=== PATIENT | female | born 1990 | race American Indian/Alaskan Native ===

== ENCOUNTER 2017-09-08 21:08 | Outpatient (CLI) | payer MEDICAID ==
[2017-09-08 21:26] VITALS: BP 134/64
[2017-09-08] MEDS ORDERED: LACTATED RINGERS 1,000 ML IV ONE ×2 (21:41→22:34)
[2017-09-08 21:56] LABS: Bacteria,Urine 1+ /HPF (Negative); Bilirubin,Urine NEG (Negative); Blood,Urine NEG (Negative); Color,Urine Yellow (Yellow); Mucus,Urine FEW /HPF; Nitrite,Urine NEG (Negative)
[2017-09-08] MEDS ORDERED: BRETHINE SUB-Q ONE (23:01)
[2017-09-08] MEDS ORDERED: ZOFRAN IV ONE (23:33)
== END 2017-09-09 00:30 | disposition home or self-care (01) ==
LOC: TRG 21:08
PROVIDERS: ATTEND Obstetrics & Gynecology Gynecology
DX: O21.2 Late vomiting of pregnancy (principal); Z3A.35 35 weeks gestation of pregnancy
CPT/HCPCS: 59025; 81001; 96360; 96372; J2405; J3105; J7120

== ENCOUNTER 2017-09-23 09:53 | Outpatient (CLI) | payer MEDICAID ==
[2017-09-23 13:32] VITALS: BP 123/68
--- NOTE | 2017-09-23 15:03 | Ultrasound Report ---
FINAL REPORT EXAM: US OB BPP WO NON-STRESS HISTORY: Decreased movement TECHNIQUE: Sonographic biophysical profile performed PRIORS: None. FINDINGS: There is a single live intrauterine of approximately 39 weeks 2 days according to the provided WAYNE of 02/25/2018. The the amniotic fluid volume is normal with KERWIN of 21 cm. cardiac activity is measured at 143 bpm. biophysical profile: breathing movements: 2 Gross body movements: 2 tone: 2 Amniotic fluid volume: 2 Score: 8 out of 8. IMPRESSION: Normal biophysical profile scoring 8 out of 8
--- NOTE | 2017-09-23 15:05 | Ultrasound Report ---
FINAL REPORT EXAM: US OB LIMITED HISTORY: Decreased movement TECHNIQUE: Limited obstetrical ultrasound performed for amniotic fluid evaluation. PRIORS: None. FINDINGS: There is a single live intrauterine . Based on WAYNE of 09/28/2017, gestational age is 39 weeks 2 days. The amniotic fluid volume is normal with KERWIN of 21.0 cm. The cardiac activity is seen, measured at 143 beats per minute. Cervix region is not imaged. IMPRESSION: There is a single live intrauterine of approximately 39 weeks 2 days gestational age. KERWIN is normal, 21.0 cm.
== END 2017-09-23 14:06 | disposition home or self-care (01) ==
LOC: TRG 09:53
PROVIDERS: ATTEND Obstetrics & Gynecology
DX: O36.8130 Decreased fetal movements, third trimester, not applicable or unspecified (principal); O47.1 False labor at or after 37 completed weeks of gestation; Z3A.39 39 weeks gestation of pregnancy
CPT/HCPCS: 59025; 76815; 76819